=== PATIENT | female | born 1985 | race Caucasian/White ===

== ENCOUNTER 2016-12-27 11:44 | Emergency (ER) | payer SELFPAY ==
[2016-12-27 13:23] VITALS: BP 102/67
--- NOTE | 2016-12-27 13:59 | UC ---
Throat Pain/Nasal Jayden HPI - HPI Summary HPI Summary: ST with painful swelling starting about a week ago. Has had recurrent strep -- was frequent when her daughter was 5 and 6, but hasn't had in about a year. Denies cough or congestion. Also runs a daycare. As long as she was here, decided to mention tick bite to L outer leg about 3 weeks ago. Was pretty sure it was only on a matter of hours and was able to remove it easily by scratching it off. No redness, drainage, or swelling there. - History of Current Complaint Chief Complaint: UCRespiratory Stated Complaint: SORE THROAT AND TICK BITE Time Seen by Provider: 12/27/16 13:24 Hx Obtained From: Patient Hx Last Menstrual Period: 11/24/16 ?: No Onset/Duration: Gradual Onset, Lasting Days Severity: Moderate Cough: None Associated Signs & Symptoms: Negative: Sinus Discomfort, Nasal Discharge, Fever , Vomiting, Rash - Allergies/Home Medications Allergies/Adverse Reactions: Allergies Allergy/AdvReac Type Severity Reaction Status Date / Time Bee Venom Allergy Intermediate Hives, Verified 09/19/15 19:07 Swelling PMH/Surg Hx/FS Hx/Imm Hx Endocrine History Of: Denies: Diabetes, Thyroid Disease Cardiovascular History Of: Denies: Cardiac Disorders, Hypertension Respiratory History Of: Denies: COPD, Asthma GI/ History Of: Denies: Ulcer - Surgical History Surgical History: Yes Surgery Procedure, Year, and Place: L knee surgery at age 17-18 yrs - Family History Known Family History: Positive: Other - daughter gets freq strep Family History: NON CONTRIBUTORY - Social History Occupation: Employed Full-time Lives: With Family Alcohol Use: Occasionally Substance Use Type: None Smoking Status (MU): Never Smoked Tobacco Have You Smoked in the Last Year: No - Immunization History Most Recent Influenza Vaccination: Jul 2013 Review of Systems Constitutional: Negative Skin: Other - L leg tick bite Eyes: Negative ENT: Sore Throat Respiratory: Negative Cardiovascular: Negative Gastrointestinal: Negative Genitourinary: Negative Motor: Negative Neurovascular: Negative Musculoskeletal: Negative Neurological: Negative Psychological: Negative All Other Systems Reviewed And Are Negative: Yes Physical Exam Triage Information Reviewed: Yes Appearance: Well-Appearing, No Pain Distress, Well-Nourished Vital Signs: Initial Vital Signs Temp 98.7 F 12/27/16 13:18 Pulse 86 12/27/16 13:18 Resp 16 05/08/17 13:18 BP 102/67 12/27/16 13:18 Pulse Ox 99 12/27/16 13:18 Vital Signs Reviewed: Yes Eye Exam: Normal Eyes: Positive: Conjunctiva Clear ENT: Positive: Hearing grossly normal, Pharyngeal erythema, TMs normal, Tonsillar swelling. Negative: Tonsillar exudate Dental Exam: Normal Dental: Positive: Percussion Tenderness @, Gross Decay/Caries @, Dental Fracture @ Neck: Positive: Supple, Enlarged Nodes @ - ant cervial Respiratory Exam: Normal Respiratory: Positive: Chest non-tender, Lungs clear, Normal breath sounds, No respiratory distress, No accessory muscle use Cardiovascular Exam: Normal Cardiovascular: Positive: RRR, No Murmur Musculoskeletal Exam: Normal Neurological Exam: Normal Neurological: Positive: Alert Psychological Exam: Normal Skin Exam: Other - tick bite site benign, very faint 1cm round red area no erythema Throat Pain/Nasal Course/Dx - Differential Dx/Diagnosis Provider Diagnoses: strep pharyngitis. tick bite Discharge - Discharge Plan Condition: Stable Disposition: HOME Prescriptions: Cefdinir [Cefdinir 300 MG CAP] 300 mg PO BID #20 cap Patient Education Materials: Strep Throat (ED) Referrals: No Primary Care Phys,NOPCP [Primary Care Provider] - Additional Instructions: TICK BITE: You have been bitten by a tick. Once the tick is removed, these "bites" usually cause no problems. Tick fever, tick paralysis, [place] Spotted fever, and Lyme disease are uncommon -- but you should mention this tick bite to your doctor if you develop unusual symptoms in the next several weeks. If you develop any of the following, please see your physician promptly: (1) Fever, chills, or generalized malaise associated with a headache. (2) A red round area at the site of the bite (or elsewhere) (3) Joint pain, joint swelling or generalized weakness. (4) Redness, swelling, or drainage at the site of the bite. Check yourself, your children and your pets for ticks whenever you've been in an area where ticks live. To remove a tick, grasp it firmly with some tweezers or a string in a slipknot as close to its head as possible and pull it steadily. Ticks do not have a typical "head" attached to their body. There are mouth parts sticking out which they use to feed. If there are mouth parts left behind in the wound there is NO increased risk of Lyme infection; however, the chances of a bacterial skin infection (cellulitis) are higher. If mouth parts remain after tick removal, the best thing to do is apply warm soaks to the area 3-4 times per day to encourage the skin to expel the foreign material. WHEN A TICK IS NOT ENGORGED AND HAS BEEN ON LESS THAN 24 HOURS - THE RISK FOR LYME IS NEGLIGIBLE. YOU CAN REMOVE THE TICK AND OBSERVE THE AREA ON YOUR OWN.
== END 2016-12-27 13:57 | disposition home or self-care (01) ==
LOC: UCEAST 11:44
DX: J02.0 Streptococcal pharyngitis (principal); S80.862A Insect bite (nonvenomous), left lower leg, initial encounter; Z91.030 Bee allergy status; W57.XXXA Bitten or stung by nonvenomous insect and other nonvenomous arthropods, initial encounter
CPT/HCPCS: 87651; 99211; G0463

== ENCOUNTER 2017-01-03 12:43 | Emergency (ER) | payer SELFPAY ==
[2017-01-03 13:40] VITALS: BP 116/68
--- NOTE | 2017-01-03 13:53 | UC ---
Ear Complaint HPI - HPI Summary HPI Summary: For about a month has had dullness, crackles, and mild ache in L ear. Had recent strep infection that has resolved, but ear sx preceded it and have persisted without change. Denies trouble hearing or fever. Has noticed scant blood on swab when she cleans her ears in the morning, no active drainage. - History of Current Complaint Chief Complaint: UCEar Stated Complaint: EAR COMPLAINT Time Seen by Provider: 01/03/17 13:36 Hx Obtained From: Patient Hx Last Menstrual Period: 11/24/16 ?: No Onset/Duration: Gradual Onset, Lasting Weeks Severity Initially: Mild Severity Currently: Mild Aggravating Factors: Nothing Associated Signs/Symptoms: Positive: Discharge - scant blood, URI Symptoms. Negative: Hearing Loss - Allergies/Home Medications Allergies/Adverse Reactions: Allergies Allergy/AdvReac Type Severity Reaction Status Date / Time Bee Venom Allergy Intermediate Hives, Verified 09/19/15 19:07 Swelling PMH/Surg Hx/FS Hx/Imm Hx Endocrine History Of: Denies: Diabetes, Thyroid Disease Cardiovascular History Of: Denies: Cardiac Disorders, Hypertension Respiratory History Of: Denies: COPD, Asthma GI/ History Of: Denies: Ulcer - Surgical History Surgical History: Yes Surgery Procedure, Year, and Place: L knee surgery at age 17-18 yrs - Family History Known Family History: Positive: Other - daughter gets freq strep Family History: NON CONTRIBUTORY - Social History Lives: With Family Alcohol Use: Occasionally Substance Use Type: None Smoking Status (MU): Never Smoked Tobacco Have You Smoked in the Last Year: No - Immunization History Most Recent Influenza Vaccination: Jul 2013 Review of Systems Constitutional: Negative Skin: Negative Eyes: Negative ENT: Ear Ache Respiratory: Negative Cardiovascular: Negative Gastrointestinal: Negative Genitourinary: Negative Motor: Negative Neurovascular: Negative Musculoskeletal: Negative Neurological: Negative Psychological: Negative All Other Systems Reviewed And Are Negative: Yes Physical Exam Triage Information Reviewed: Yes Appearance: Well-Appearing, No Pain Distress, Well-Nourished Vital Signs: Initial Vital Signs Temp 98.1 F 01/03/17 13:37 Pulse 84 01/03/17 13:37 Resp 18 01/03/17 13:37 BP 116/68 01/03/17 13:37 Pulse Ox 100 01/03/17 13:37 Vital Signs Reviewed: Yes Eye Exam: Normal Eyes: Positive: Conjunctiva Clear ENT: Positive: Pharynx normal, TMs normal, Other: - visible air-fluid line behind L ear. Negative: Pharyngeal erythema, Tonsillar swelling Dental Exam: Normal Neck exam: Normal Neck: Positive: Supple, Nontender, No Lymphadenopathy Respiratory Exam: Normal Respiratory: Positive: Chest non-tender, Lungs clear, Normal breath sounds, No respiratory distress, No accessory muscle use Cardiovascular Exam: Normal Cardiovascular: Positive: RRR, No Murmur Musculoskeletal Exam: Normal Neurological Exam: Normal Neurological: Positive: Alert Psychological Exam: Normal Skin Exam: Normal Ear Complaint Course/Dx - Differential Dx/Diagnosis Provider Diagnoses: L ear eustachian tube dysfunction Discharge - Discharge Plan Condition: Stable Disposition: HOME Prescriptions: Mometasone NASAL (NF) [Nasonex (NF)] 2 spray BOTH NARES DAILY #1 nasal.spr Patient Education Materials: Serous Otitis Media (ED) Referrals: Rivas Lehman MD [Medical Doctor] - Additional Instructions: Please see your ENT office to follow-up about your persistent fluid in your ear. I see no signs of infection today. In the mean time, the nasal steroid spray might help your ear open up.
== END 2017-01-03 13:55 | disposition home or self-care (01) ==
LOC: UCEAST 12:43
DX: H69.92 Unspecified Eustachian tube disorder, left ear (principal); Z91.030 Bee allergy status
CPT/HCPCS: 99211; G0463

== ENCOUNTER 2017-03-23 17:53 | Emergency (ER) | payer MEDICAID ==
[2017-03-23 18:17] VITALS: BP 104/67
--- NOTE | 2017-03-23 18:21 | UC ---
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 - History of Current Complaint Chief Complaint: UCUpperExtremity Stated Complaint: RIGHT THUMB/HAND INJURY Time Seen by Provider: 03/23/17 18:19 Hx Last Menstrual Period: 02/26/17 - Allergies/Home Medications Allergies/Adverse Reactions: Allergies Allergy/AdvReac Type Severity Reaction Status Date / Time Bee Venom Allergy Intermediate Hives, Verified 03/23/17 18:17 Swelling PMH/Surg Hx/FS Hx/Imm Hx Previously Healthy: Yes - Surgical History Surgical History: Yes Surgery Procedure, Year, and Place: L knee surgery at age 17-18 yrs - Family History Known Family History: Positive: Other - daughter gets freq strep Family History: NON CONTRIBUTORY - Social History Alcohol Use: Occasionally Substance Use Type: None Smoking Status (MU): Never Smoked Tobacco Have You Smoked in the Last Year: No - Immunization History Most Recent Influenza Vaccination: Jul 2013 Review of Systems Constitutional: Negative Skin: Negative Eyes: Negative ENT: Negative Respiratory: Negative Cardiovascular: Negative Gastrointestinal: Negative Genitourinary: Negative Motor: Negative Neurovascular: Negative Musculoskeletal: Myalgia, Other: - RIGHT PROXIMAL THUMB PAIN Neurological: Negative Psychological: Negative All Other Systems Reviewed And Are Negative: Yes Physical Exam Triage Information Reviewed: Yes Vital Signs: Initial Vital Signs Temp 37.0 C 03/23/17 18:14 Pulse 83 03/23/17 18:14 Resp 16 03/23/17 18:14 BP 104/67 03/23/17 18:14 Pulse Ox 99 03/23/17 18:14 Eye Exam: Normal ENT Exam: Normal Dental Exam: Normal Neck exam: Normal Neck: Positive: 1 Respiratory Exam: Normal Cardiovascular Exam: Normal Abdominal Exam: Normal Musculoskeletal: Positive: Strength Limited @, ROM Limited @, Other: - RIGHT PROXIMAL THUMB PAIN Neurological Exam: Normal Psychological Exam: Normal Skin Exam: Normal Upper Extremity Course/Dx - Differential Dx/Diagnosis Provider Diagnoses: RIGHT THUMB PAIN Discharge - Discharge Plan Condition: Stable Disposition: HOME Prescriptions: Meloxicam [Mobic] 7.5 mg PO BID PC #30 tab Patient Education Materials: Hand Sprain (ED) Referrals: Morro Chan MD [Medical Doctor] - No Primary Care Phys,NOPCP [Primary Care Provider] -
--- NOTE | 2017-03-23 18:53 | RAD ---
INDICATION: Right hand injury 6 weeks ago COMPARISON: None TECHNIQUE: AP, lateral, and oblique views were obtained. FINDINGS: There is a mildly distracted intra-articular avulsion injury involving the base of the proximal phalanx of the thumb. There are no other fractures. The bony structures, joint spaces, and soft tissues otherwise normal. IMPRESSION: AVULSION FRACTURE BASE OF PROXIMAL PHALANX OF THE THUMB
== END 2017-03-23 19:39 | disposition home or self-care (01) ==
LOC: UCEAST 17:53
DX: M79.644 Pain in right finger(s) (principal); X50.0XXA Overexertion from strenuous movement or load, initial encounter; Y93.79 Activity, other specified sports and athletics; Y92.9 Unspecified place or not applicable; Y99.9 Unspecified external cause status
CPT/HCPCS: 99213; G0463

== ENCOUNTER 2017-04-29 09:05 | Emergency (ER) | payer OTHER ==
[2017-04-29 09:14] VITALS: BP 104/77
--- NOTE | 2017-04-29 09:50 | UC ---
Complaint Female HPI - HPI Summary HPI Summary: 1 WEEK OF URINARY FREQUENCY AND LOWER ABDOMINAL PAIN. NO FEVER, NASUEA OR BACK PAIN. STATES IT FEELS LIKE A UTI. - History Of Current Complaint Chief Complaint: UCGU Stated Complaint: URINARY ISSUE Time Seen by Provider: 04/29/17 09:46 Hx Obtained From: Patient Hx Last Menstrual Period: 04/05/17 Onset/Duration: Gradual Onset, Lasting Days, Still Present Severity Initially: Moderate Severity Currently: Moderate Pain Intensity: 4 Pain Scale Used: 0-10 Numeric Character: Burning Aggravating Factor(s): Urination Alleviating Factor(s): Nothing Associated Signs And Symptoms: Negative: Fever, Back Pain, Vaginal Bleeding/ Discharge, Vaginal Discharge, Nausea, Vomiting(# Of Episodes =), Genital Swelling, Genital Blisters - Allergies/Home Medications Allergies/Adverse Reactions: Allergies Allergy/AdvReac Type Severity Reaction Status Date / Time Bee Venom Allergy Intermediate Hives, Verified 04/29/17 09:09 Swelling Home Medications: Home Medications Ibuprofen TAB* [Advil TAB*] 800 mg PO PRN 04/29/17 [History] PMH/Surg Hx/FS Hx/Imm Hx Previously Healthy: Yes - Surgical History Surgical History: Yes Surgery Procedure, Year, and Place: L knee surgery at age 17-18 yrs - Family History Known Family History: Positive: Other - daughter gets freq strep Negative: Hypertension - Social History Alcohol Use: Occasionally Substance Use Type: None Smoking Status (MU): Never Smoked Tobacco Have You Smoked in the Last Year: No - Immunization History Most Recent Influenza Vaccination: Jul 2013 Review of Systems Constitutional: Negative Respiratory: Negative Cardiovascular: Palpitations Gastrointestinal: Abdominal Pain Genitourinary: Frequency, Urgency All Other Systems Reviewed And Are Negative: Yes Physical Exam Triage Information Reviewed: Yes Appearance: Well-Appearing, No Pain Distress, Well-Nourished Vital Signs: Initial Vital Signs Temp 97.0 F 04/29/17 09:10 Pulse 58 04/29/17 09:10 Resp 16 04/29/17 09:10 BP 104/77 04/29/17 09:10 Pulse Ox 95 04/29/17 09:10 Vital Signs Reviewed: Yes Eyes: Positive: Conjunctiva Clear ENT: Positive: Hearing grossly normal Neck: Positive: Supple Respiratory: Positive: No respiratory distress, No accessory muscle use Cardiovascular: Positive: Pulses Normal Abdomen Description: Positive: Nontender, Soft. Negative: CVA Tenderness (R), CVA Tenderness (L), Distended, Guarding Musculoskeletal: Positive: No Edema Neurological: Positive: Alert Psychological: Positive: Age Appropriate Behavior Skin: Negative: rashes Diagnostics - Laboratory Diagnostic Studies Completed/Ordered: URINE DIP SP. GR. 1.015, 2+ LEUKS, TRACE BLOOD Complaint Female Dx - Differential Dx/Diagnosis Provider Diagnoses: UTI Discharge - Discharge Plan Condition: Stable Disposition: HOME Prescriptions: Sulfamethox/Trimethoprim DS* [Bactrim DS 800/160 TAB*] 1 tab PO BID #10 tab Patient Education Materials: Urinary Tract Infection in Women (ED) Referrals: No Primary Care Phys,NOPCP [Primary Care Provider] - Additional Instructions: WE HAVE SENT YOUR URINE FOR CULTURE AND WILL CALL YOU IF YOUR MEDICATION NEEDS TO BE ALTERED. STAY HYDRATED. CALL THE NUMBER BELOW FOR ASSISTANCE IN ESTABLISHING WITH A PCP An additional resource available to assist in finding the appropriate physician for your health care needs is the [facility] ([facility]). You may contact them by calling [phone].
== END 2017-04-29 09:50 | disposition home or self-care (01) ==
LOC: UCEAST 09:05
DX: N39.0 Urinary tract infection, site not specified (principal); B96.20 Unspecified Escherichia coli [E. coli] as the cause of diseases classified elsewhere; Z91.030 Bee allergy status
CPT/HCPCS: 81003; 87077; 87086; 87186; 99212; G0463

== ENCOUNTER 2017-04-30 09:08 | Emergency (ER) | payer OTHER ==
[2017-04-30 09:19] VITALS: BP 102/71
--- NOTE | 2017-04-30 09:51 | UC ---
Throat Pain/Nasal Jayden HPI - HPI Summary HPI Summary: Patient complains of one day onset sore throat. She states she has a history of frequent strep throat and states feels like she has the same now. 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 She states she is able to eat, drink and swallow her own secretions, and denies any difficulty breathing. Denies fever, chills, chest pain, congestion, abdomianl pain, nausea, vomiting or diarrhea. - History of Current Complaint Chief Complaint: UCGeneralIllness Stated Complaint: SORE THROAT Time Seen by Provider: 04/30/17 09:26 Hx Obtained From: Patient Hx Last Menstrual Period: 04/05/17 ?: No Onset/Duration: Gradual Onset, Lasting Days Severity: Moderate Pain Intensity: 2 Pain Scale Used: 0-10 Numeric Cough: Nonproductive Associated Signs & Symptoms: Positive: Negative - Epiglottits Risk Factors Epiglottis Risk Factors: Negative - Allergies/Home Medications Allergies/Adverse Reactions: Allergies Allergy/AdvReac Type Severity Reaction Status Date / Time Bee Venom Allergy Intermediate Hives, Verified 04/30/17 09:16 Swelling PMH/Surg Hx/FS Hx/Imm Hx Previously Healthy: Yes - Surgical History Surgical History: Yes Surgery Procedure, Year, and Place: L knee surgery at age [age] yrs - Family History Known Family History: Positive: Other - daughter gets freq strep Negative: Hypertension Family History: NON CONTRIBUTORY - Social History Occupation: Employed Full-time Lives: Alone Alcohol Use: Occasionally Substance Use Type: None Smoking Status (MU): Never Smoked Tobacco Have You Smoked in the Last Year: No - Immunization History Most Recent Influenza Vaccination: Jul 2013 Review of Systems Constitutional: Fatigue Skin: Negative Eyes: Negative ENT: Sore Throat, Ear Ache Respiratory: Negative Gastrointestinal: Negative Genitourinary: Negative Musculoskeletal: Negative All Other Systems Reviewed And Are Negative: Yes Physical Exam Triage Information Reviewed: Yes Appearance: Ill-Appearing Vital Signs: Initial Vital Signs Temp 98.4 F 04/30/17 09:16 Pulse 75 04/30/17 09:16 Resp 16 04/30/17 09:16 BP 102/71 04/30/17 09:16 Pulse Ox 100 04/30/17 09:16 Vital Signs Reviewed: Yes Eye Exam: Normal ENT: Positive: Pharyngeal erythema, TM dull Neck exam: Normal Respiratory Exam: Normal Abdominal Exam: Normal Skin Exam: Normal Throat Pain/Nasal Course/Dx - Course Course Of Treatment: Patient states she is currently on Bactrim for UTI she has taken one dose. She states she has since developed a sore throat and her symtpoms are consistent with prevous strep throat. 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 I do not feel any other ABX are indicated and I gave her a work not that take her out for today. If her symtpoms worsen, persist or other concerns develop she was instructed to follow up with her PCP. At the time of discharge the patient had normal VS, and was hemodynamically, with patent airway, and stable. - Differential Dx/Diagnosis Differential Diagnosis/HQI/PQRI: Pharyngitis, Other Provider Diagnoses: strep throat Discharge - Discharge Plan Condition: Stable Disposition: HOME Patient Education Materials: Strep Throat (ED) Forms: *Work Release Referrals: No Primary Care Phys,NOPCP [Primary Care Provider] -
== END 2017-04-30 09:40 | disposition home or self-care (01) ==
LOC: UCEAST 09:08
DX: J02.0 Streptococcal pharyngitis (principal)
CPT/HCPCS: 99211; G0463

== ENCOUNTER 2017-06-09 09:09 | Day surgery (SDC) | payer OTHER ==
[~2017-06-09 09:09] MED LIST: Buffered Lidocaine 0.9% SYRIN* 5 ML/SYR SYRINGE INTRADERM ONE; Dexamethasone IV* 4 MG/ML 1 ML (4 MG) IV SLOW PU ONE; Dexamethasone IV* 4 MG/ML 1 ML (4 MG) ONE; Famotidine IV* 10 MG/ML 2 ML (20 mg) IV ONE; Famotidine IV* 10 MG/ML 2 ML (20 mg) ONE
[2017-06-09] MEDS ORDERED: ceFAZolin 2 GM PREMIX (*) 2 GM/50 ML BAG IVPB ONE (09:51)
[2017-06-09] MEDS ORDERED: Bupivacaine 0.25% SDV* 30 ML ONE (10:44)
[2017-06-09] MEDS ORDERED: fentaNYL* 50 MCG/ML 2 ML VIAL (100 MCG VIAL) ONE ×2 (10:47→12:27)
[2017-06-09] MEDS ORDERED: Midazolam* 1 MG/ML 2 ML VIAL (2 MG) ONE (10:47)
[2017-06-09] MEDS ORDERED: Propofol* 10 MG/ML 20 ML BTL IV PUSH ONE (10:47)
[2017-06-09] MEDS ORDERED: Lidocaine 2% PF * 5 ML VIAL ONE (10:47)
[2017-06-09] MEDS ORDERED: ROPIVACAINE 5 MG/ML 30 ML BTL (0.5%) ONE (11:03)
[2017-06-09] MEDS ORDERED: Ketorolac INJ* 30 MG/ML 1 ML VIAL ONE (11:34)
[2017-06-09] MEDS ORDERED: oxyCODONE/Acetamin 5/325 MG* TAB PO PRN (11:46)
[2017-06-09] MEDS ORDERED: HYDROcodone/ACETAMIN 5-325 MG* 1 TAB PO PRN (11:46)
[2017-06-09] MEDS ORDERED: PROCHLORPERAZINE INJ 5 MG/ML 2 ML VIAL IV PRN (11:46)
[2017-06-09] MEDS ORDERED: fentaNYL* 50 MCG/ML 2 ML VIAL (100 MCG VIAL) IV PRN (11:46)
[2017-06-09] MEDS ORDERED: Ondansetron INJ* 2 MG/ML VIAL ONE (12:42)
[2017-06-09] MEDS ORDERED: PROCHLORPERAZINE INJ 5 MG/ML 2 ML VIAL ONE (13:23)
[2017-06-09 14:54] VITALS: BP 104/64
--- NOTE | 2017-06-10 10:31 | OP ---
OPERATIVE REPORT: DATE OF OPERATION: 06/09/17 - VAMSHI DATE OF : 85 SURGEON: Morro Chan MD IT SERVICE CONTINUITY SUPERVISOR: LUL Boo. An sound assistant was needed for the entirety of the procedure to aid in positioning of the arm and retraction. ANESTHESIOLOGIST: Dr. Willis. ANESTHESIA: General with intercostal block. 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 OPERATIVE PROCEDURE: Excision of right thumb metatarsophalangeal joint ulnar collateral ligament avulsion fracture fragment and advancement of the ulnar collateral ligament into the fracture bed for repair of the ligament. INDICATIONS: Guillermina had the fracture back in early summer. It has gone on to be a symptomatic nonunion. It is very painful when she uses the thumb. We talked about risks and benefits. I told her that I would try to fix the fragment, but if not I would repair tissue with suture. She understands this. She understands the chance of a failure of the surgery necessitating further surgery including an ulnar collateral ligament reconstruction. She wanted to proceed. ESTIMATED BLOOD LOSS: 2 mL. COMPLICATIONS: None. FINDINGS: The fragment was too small to take a screw and so we had to repair with sutures. DESCRIPTION OF PROCEDURE: Guillermina was seen in the preoperative holding area. The correct side, site, and procedure were identified. We came back to the operating room. The arm was prepped and draped in the usual fashion. Formal time-out was performed. I began by exsanguinating the arm with the Esmarch and the tourniquet was inflated to 250 mmHg. I made a lazy S incision over the ulnar aspect of the thumb metatarsophalangeal joint. Dissection was carried down. The traversing dorsal sensory nerves were retracted and protected. The adductor aponeurosis was incised longitudinally and retracted dorsally and volarly. This exposed the ligament. There was quite a bit of scar tissue that developed adhesions between the aponeurosis and the ligament. These were freed up with the [place] blade. The fracture nonunion was identified. It was debrided free of all of the soft tissue with the [place] blade and the rongeur. It was a very small fragment. I did reduce the fragment with the point of reduction clamp and checked the alignment on fluoroscopy. Everything looked very nice. I then placed one 0.6 mm K-wire out of the place and my plan to pin the fixation, I removed the clamp and then drilled with a 1.3 mm drill bit in anticipation of 1.3 mm lag screw. Unfortunately, the fragment was too small and it cracked when I drilled with a 1.3 drill. I; therefore; made the decision to excise the remainder of the fragment and to advance the ligament into the fracture bed to repair for a ulnar collateral ligament repair. I placed 2 micro Mitek suture anchors in the fracture bed. It was tight, but I was able to get them both in. I then took the 4-0 Ethibond suture off these and placed a whipstitch up into the ligament with one tail of the suture and then pulled the traction on the suture to bring the tissue and bone into apposition. I then tied both of these off. This provided excellent apposition between the distal aspect of the ulnar collateral ligament and the bone. I then took 4-0 Ethibond suture on the taper needle and placed multiple [id number] sutures to augment the repair. Once I had completed the repair, it was absolutely stable. I went ahead and irrigated out the wound. The adductor aponeurosis was repaired with 4-0 Ethibond suture. Skin was closed with 4-0 nylon suture. The area was infiltrated with 0.25% plain Marcaine. The wound was dressed with Xeroform, 4x4 's, sterile Webril, and a thumb spica splint was placed holding the thumb in the adducted position. Tourniquet was deflated and the hand pinked up immediately. She was then awoken up and taken to recovery room in stable condition. [id number]/[facility] #: [id number] CAROL
--- NOTE | 2017-06-10 19:10 | RAD ---
CPT II Codes: 6045F INDICATION: Thumb injury and pain. Fluoroscopic services provided for referring physician. 25 seconds of fluoroscopy time was used. 3 spot images demonstrates repair and hardware at the proximal ulnar aspect of the proximal phalanx of the thumb. IMPRESSION: Fluoroscopic services provided for referring physician for ligament repair.
== END 2017-06-09 14:48 | disposition home or self-care (01) ==
LOC: OREAST 09:09
PROVIDERS: ATTEND Orthopaedic Surgery Hand Surgery
DX: S62.511 Displaced fracture of proximal phalanx of right thumb (principal); X58.XXXD Exposure to other specified factors, subsequent encounter; Y92.9 Unspecified place or not applicable
CPT/HCPCS: 76000; 81025; C1776; J0690; J0780; J1100; J1885; J2250; J2405; J2704; J2795; J3010

== ENCOUNTER 2017-07-16 09:19 | Emergency (ER) | payer MEDICAID ==
[2017-07-16 09:34] VITALS: BP 93/60
--- NOTE | 2017-07-16 10:33 | UC ---
Throat Pain/Nasal Jayden HPI - HPI Summary HPI Summary: sore throat upset stomach for 2 days feels like past episodes of strep throat - History of Current Complaint Chief Complaint: UCGeneralIllness Stated Complaint: STREP THROAT Time Seen by Provider: 07/16/17 09:54 Hx Obtained From: Patient Hx Last Menstrual Period: 07/15/17 ?: No Onset/Duration: Sudden Onset, Lasting Days - 2, Still Present Severity: Moderate Cough: None - Allergies/Home Medications Allergies/Adverse Reactions: Allergies Allergy/AdvReac Type Severity Reaction Status Date / Time Bee Venom Allergy Intermediate Hives, Verified 07/16/17 09:23 Swelling PMH/Surg Hx/FS Hx/Imm Hx Previously Healthy: Yes - Surgical History Surgical History: Yes Surgery Procedure, Year, and Place: 2000 L knee surgery [place] thumb surgery - Family History Known Family History: Positive: Other - daughter gets freq strep Negative: Hypertension Family History: NON CONTRIBUTORY - Social History Occupation: Employed Full-time Lives: With Family Alcohol Use: Occasionally Alcohol Amount: 1-2 DRINKS/WEEK Substance Use Type: None Smoking Status (MU): Never Smoked Tobacco Have You Smoked in the Last Year: No - Immunization History Most Recent Influenza Vaccination: Jul 2013 Review of Systems Constitutional: Negative Skin: Negative Eyes: Negative ENT: Sore Throat Respiratory: Negative Cardiovascular: Negative Gastrointestinal: Abdominal Pain Genitourinary: Negative Motor: Negative Neurovascular: Negative Musculoskeletal: Negative Neurological: Negative Psychological: Negative Is Patient Immunocompromised?: No All Other Systems Reviewed And Are Negative: Yes Physical Exam Triage Information Reviewed: Yes Appearance: Well-Appearing, No Pain Distress, Well-Nourished Vital Signs: Initial Vital Signs Temp 98 F 07/16/17 09:30 Pulse 82 07/16/17 09:30 Resp 20 07/16/17 09:30 BP 93/60 07/16/17 09:30 Pulse Ox 100 07/16/17 09:30 Vital Signs Reviewed: Yes Eye Exam: Normal Eyes: Positive: Conjunctiva Clear ENT Exam: Normal ENT: Positive: Normal ENT inspection, Hearing grossly normal, Pharyngeal erythema, TMs normal, Uvula midline. Negative: Nasal congestion, Trismus, Muffled voice, Hoarse voice, Dental tenderness, Sinus tenderness Dental Exam: Normal Neck exam: Normal Neck: Positive: Supple, Nontender, No Lymphadenopathy Respiratory Exam: Normal Respiratory: Positive: Chest non-tender, Lungs clear, Normal breath sounds, No respiratory distress, No accessory muscle use Cardiovascular Exam: Normal Cardiovascular: Positive: RRR, No Murmur, Pulses Normal, Brisk Capillary Refill Abdominal Exam: Normal Musculoskeletal Exam: Normal Neurological Exam: Normal Neurological: Positive: Alert, Muscle Tone Normal Psychological Exam: Normal Skin Exam: Normal Diagnostics - Laboratory Diagnostic Studies Completed/Ordered: RST (-),, son is RST (+) Throat Pain/Nasal Course/Dx - Course Assessment/Plan: Amoxicillin increase fluids, tylenol, ibuprofen for pain follow with pcp prn - Differential Dx/Diagnosis Provider Diagnoses: Pharyngitis Discharge - Discharge Plan Condition: Stable Disposition: HOME Prescriptions: Amoxicillin PO (*) [Amoxicillin 500 MG CAP*] 500 mg PO Q12H #20 cap Patient Education Materials: Amoxicillin (By mouth), Pharyngitis (ED) Referrals: [facility] [place] [facility]IAN REFERRAL [Outside] - If Needed
== END 2017-07-16 10:48 | disposition home or self-care (01) ==
LOC: UCEAST 09:19
DX: J02.9 Acute pharyngitis, unspecified (principal); Z72.89 Other problems related to lifestyle
CPT/HCPCS: 87651; 99212; G0463

== ENCOUNTER 2017-10-17 17:11 | Emergency (ER) | payer OTHER | END 2017-10-17 18:09 | disposition left against medical advice (07) | LOC: UCCORT 17:11 | DX: R23.9 Unspecified skin changes (principal); Z53.21 Procedure and treatment not carried out due to patient leaving prior to being seen by health care provider ==

== ENCOUNTER 2017-10-17 19:17 | Emergency (ER) | payer OTHER ==
[2017-10-17 19:30] VITALS: BP 115/71
[2017-10-17] MEDS ORDERED: Tetan/Diph/Pertus SYR(Tdap)* 0.5 ML SYR(BOOSTRIX) use SYR IM ONE (19:35)
--- NOTE | 2017-10-17 19:58 | UC ---
Hand/Wrist HPI - HPI Summary HPI Summary: Staple from old carpet punctured into R 3rd finger volar aspect yesterday. Not UTD on tetanus, now finger is swollen and tender. Unable to fully extend. - History Of Current Complaint Hx Obtained From: Patient Hx Last Menstrual Period: 09/23/17 ?: No Onset/Duration: Sudden Onset Severity Initially: Mild Severity Currently: Moderate Pain Intensity: 10 Aggravating Factor(s): Movement, Flexion, Extension Associated Signs And Symptoms: Positive: Swelling Related History: Dominant Hand Right <Sophia Resendez - Last Filed: 10/17/17 19:51> <Daphne Sanchez - Last Filed: 10/17/17 20:16> - History Of Current Complaint Chief Complaint: UCUpperExtremity Stated Complaint: FINGER INJURY Time Seen by Provider: 10/17/17 19:32 - Allergies/Home Medications Allergies/Adverse Reactions: Allergies Allergy/AdvReac Type Severity Reaction Status Date / Time bee venom protein (honey bee) Allergy Hives Verified 10/17/17 19:21 Home Medications: Home Medications Ibuprofen PRN 10/17/17 [History] PMH/Surg Hx/FS Hx/Imm Hx Previously Healthy: Yes - Surgical History Surgical History: Yes Surgery Procedure, Year, and Place: 2000 L knee surgery [place] thumb surgery - Family History Known Family History: Positive: Other - daughter gets freq strep Negative: Hypertension Family History: NON CONTRIBUTORY - Social History Alcohol Use: Occasionally Alcohol Amount: 1-2 DRINKS/WEEK Substance Use Type: None Smoking Status (MU): Never Smoked Tobacco Have You Smoked in the Last Year: No - Immunization History Most Recent Influenza Vaccination: Jul 2013 <Sophia Resendez - Last Filed: 10/17/17 19:51> Review of Systems Constitutional: Negative Skin: Other - PW Eyes: Negative ENT: Negative Respiratory: Negative Cardiovascular: Negative Gastrointestinal: Negative Genitourinary: Negative Motor: Negative Neurovascular: Negative Musculoskeletal: Decreased ROM Neurological: Negative Psychological: Negative Is Patient Immunocompromised?: No All Other Systems Reviewed And Are Negative: Yes <Sophia Resendez - Last Filed: 10/17/17 19:51> Physical Exam Triage Information Reviewed: Yes Appearance: Well-Appearing, Well-Nourished Vital Signs: Initial Vital Signs Temp 98.6 F 10/17/17 19:25 Pulse 88 10/17/17 19:25 Resp 16 02/26/18 19:25 BP 115/71 10/17/17 19:25 Pulse Ox 100 10/17/17 19:25 Vital Signs Reviewed: Yes Eye Exam: Normal Eyes: Positive: Conjunctiva Clear ENT Exam: Normal ENT: Positive: Normal ENT inspection, Hearing grossly normal, Pharynx normal, TMs normal Dental Exam: Normal Neck exam: Normal Neck: Positive: Supple, Nontender, No Lymphadenopathy Respiratory Exam: Normal Respiratory: Positive: Chest non-tender, Lungs clear, Normal breath sounds, No respiratory distress, No accessory muscle use Cardiovascular Exam: Normal Cardiovascular: Positive: RRR, No Murmur Musculoskeletal Exam: Other - pw to volar aspect of R 3rd proximal phalanx of hand, no surrounding erythema or streaking. Mild pain into palm along flexor tendon sheath. Musculoskeletal: Positive: ROM Limited @ - R 3rd finger unable to fully extend or bend at PIP joint Neurological Exam: Normal Psychological Exam: Normal Skin Exam: Other - Point PW R 3rd finger <Sophia Resendez - Last Filed: 10/17/17 19:51> Vital Signs: Initial Vital Signs Temp 98.6 F 10/17/17 19:25 Pulse 88 10/17/17 19:25 Resp 16 10/17/17 19:25 BP 115/71 10/17/17 19:25 Pulse Ox 100 10/17/17 19:25 <Daphne Sanchez - Last Filed: 10/17/17 20:16> Hand/Wrist Course/Dx - Differential Dx/Diagnosis Provider Diagnoses: PW to R hand <Sophia Resendez - Last Filed: 10/17/17 19:51> Discharge <Sophia Resendez - Last Filed: 10/17/17 19:51> <Daphne Sanchez - Last Filed: 10/17/17 20:16> - Discharge Plan Condition: Stable Disposition: HOME Prescriptions: Cephalexin CAP* [Keflex 500 CAP*] 500 mg PO QID #20 cap Patient Education Materials: Puncture Wound (ED) Referrals: Morro Chan MD [Medical Doctor] - 2 Days Additional Instructions: As we discussed, the placement of your puncture wound is of particular concern because of the tendon and tendon sheath that can get infected. While you do not have redness, your swelling and stiffness should be rechecked later this week by your hand surgeon. Attestation Statement User Type: Provider - I was available for consult. This patient was seen by the advanced practice provider. The patient was not presented to, seen by, or examined by me.-Americo <Daphne Sanchez - Last Filed: 10/17/17 20:16>
== END 2017-10-17 20:00 | disposition home or self-care (01) ==
LOC: UCEAST 19:17
DX: S61.232A Puncture wound without foreign body of right middle finger without damage to nail, initial encounter (principal); Z91.030 Bee allergy status; I10 Essential (primary) hypertension; W26.8XXA Contact with other sharp object(s), not elsewhere classified, initial encounter; Y93.9 Activity, unspecified; Y92.9 Unspecified place or not applicable
CPT/HCPCS: 90471; 90715; 99211; G0463

== ENCOUNTER 2018-02-18 07:21 | Emergency (ER) | payer MEDICAID, OTHER ==
[2018-02-18 07:30] VITALS: BP 97/62
--- NOTE | 2018-02-18 09:57 | UC ---
Alex Valenzuela Rebecca, scribed for Sabi Pedraza DO on 02/18/18 at 0807 . Complaint Female HPI - HPI Summary HPI Summary: Pt is a 32 y/o F who presents to [facility] c/o abdominal cramping, urinary frequency and dysuria for 1-2 weeks, worse this morning. On triage, pain is moderate ranked 6/10. Additionally c/o nausea and dizziness secondary to . Denies vaginal bleeding, vision changes, fever, chills, back pain, vomiting, CP, SOB, cough, FRAIRE. Pt reports she has had prior similar episodes which sometimes resolve with increased water intake. She is about 7 weeks and has an appointment with [place] [facility] at the end of February with no problems with her current , besides nausea and dizziness. After her first , she would get UTIs at least 3-4 times a year for multiple years. After her second , she experiences them less frequently, with this being her first one in years. - History Of Current Complaint Chief Complaint: [facility] Stated Complaint: UTI Time Seen by Provider: 02/18/18 07:42 Hx Obtained From: Patient Hx Last Menstrual Period: 09/23/17 Onset/Duration: Lasting Weeks - 1-2 weeks, Still Present, Worse Since - This morning Severity Currently: Moderate Pain Intensity: 6 Pain Scale Used: 0-10 Numeric Character: Burning - With urination, Cramping Aggravating Factor(s): Nothing Alleviating Factor(s): Nothing Associated Signs And Symptoms: Positive: Nausea. Negative: Fever, Back Pain - Allergies/Home Medications Allergies/Adverse Reactions: Allergies Allergy/AdvReac Type Severity Reaction Status Date / Time bee venom protein (honey bee) Allergy Hives Verified 02/18/18 07:31 PMH/Surg Hx/FS Hx/Imm Hx - Additional Past Medical History Additional PMH: NEGATIVE PMHx: Asthma, COPD GI/ History: Other Other GI/ History: Frequent UTIs - Surgical History Surgical History: Yes Surgery Procedure, Year, and Place: 2000 L knee surgery [place] thumb surgery - Family History Known Family History: Positive: Other - daughter gets freq strep Negative: Hypertension - Social History Alcohol Use: None Alcohol Amount: 1-2 DRINKS/WEEK Substance Use Type: None Smoking Status (MU): Never Smoked Tobacco Have You Smoked in the Last Year: No - Immunization History Most Recent Influenza Vaccination: Jul 2013 Review of Systems Constitutional: Negative Skin: Negative Eyes: Negative ENT: Negative Respiratory: Negative Cardiovascular: Negative Gastrointestinal: Nausea, Other - Abdominal cramping Genitourinary: Dysuria, Frequency Motor: Negative Neurovascular: Negative Musculoskeletal: Negative Neurological: Other - Dizziness Psychological: Negative All Other Systems Reviewed And Are Negative: Yes - Comments Additional Review of Systems Comments: NEGATIVE: Fever, chills, back pain, vomiting, CP, SOB, cough, FRAIRE, vaginal bleeding Physical Exam - Summary Physical Exam Summary: Appearance: Well-Appearing, No Pain Distress, Well-Nourished Eyes: conjunctiva clear, no discharge ENT: Hearing grossly normal, no muffled/hoarse voice. Neck: Normal, Supple Respiratory/Lung Sounds: Lungs clear, Normal breath sounds, No respiratory distress, No accessory muscle use Cardiovascular: RRR, No murmur Abdomen: Nontender, Soft, no guarding, not distended Bowel Sounds: Present Musculoskeletal: Normal Neurological: Alert, muscle tone normal Psychiatric:Normal, age appropriate behavior Skin: Normal, Warm, Dry, Normal color Triage Information Reviewed: Yes Vital Signs: Initial Vital Signs Temp 98.2 F 02/18/18 07:28 Pulse 73 02/18/18 07:28 Resp 18 02/18/18 07:28 BP 97/62 02/18/18 07:28 Pulse Ox 100 02/18/18 07:28 Vital Signs Reviewed: Yes Complaint Female Dx - Course Course Of Treatment: Pt is a 32 y/o F who presents to [facility] c/o abdominal cramping, urinary frequency and dysuria for 1-2 weeks, worse this morning with pain ranked 6/10. Additionally c/o nausea and dizziness secondary to . Denies fever, chills, back pain, vomiting, CP, SOB, cough, FRAIRE. Pt reports she has had prior similar episodes which sometimes resolve with increased water intake. No problems with her current , besides nausea and dizziness. PMHx frequent UTIs - this is her first one in years. In the [facility] course, pt had a UA done with results including 2+ protein, 3+ blood, and 3+ leukocyte esterase. Pt will be D/C to home with Dx of UTI with Rx for Macrobid. Medications reviewed. Allergies reviewed. - Differential Dx/Diagnosis Provider Diagnoses: UTI - Physician Notifications Discussed Patient Care With: David Hernandez Time Discussed With Above Provider: 08:56 Instructed by Provider To: Other - Discussed protein in urine which is not presently of concern. Recommended following up with already scheduled appointment. Discharge - Sign-Out/Discharge Documenting (check all that apply): Discharge/Admit/Transfer - Discharge - Discharge Plan Condition: Stable Disposition: HOME Prescriptions: Nitrofurantoin Monohyd/M-Cryst [Macrobid 100 mg Capsule] 100 mg PO BID #10 cap Referrals: No Primary Care Phys,NOPCP [Primary Care Provider] - Additional Instructions: - Replace beneficial bacteria by taking probiotics and look into cycling probiotics or finding one for women with frequent UTIs The documentation as recorded by the Alex valdovinos Rebecca accurately reflects the service I personally performed and the decisions made by , Sabi Pedraza DO.
== END 2018-02-18 09:08 | disposition home or self-care (01) ==
LOC: UCEAST 07:21
DX: O23.41 Unspecified infection of urinary tract in pregnancy, first trimester (principal); Z3A.01 Less than 8 weeks gestation of pregnancy; Z91.030 Bee allergy status
CPT/HCPCS: 81003; 87086; 99212; G0463

== ENCOUNTER 2018-10-06 07:55 | Inpatient (IN) | payer OTHER ==
[2018-10-06] MEDS ORDERED: Buffered Lidocaine 1% SYRIN* 1 ML/SYRINGE INTRADERM ONE (08:56)
[2018-10-06] MEDS ORDERED: Lactated Ringers 1000 ML Bag* 1,000 ML IV ONE (08:56)
[2018-10-06] MEDS ORDERED: Lactated Ringers 1000 ML Bag* 1,000 ML IV SCH ×2 (09:00→15:00)
[2018-10-06 10:03] LABS: ABS Basophils 0.1 10^3/ul (0-0.2); ABS Eosinophils 0.1 10^3/ul (0-0.6); ABS Monocytes 1.2 10^3/ul (0-0.8); ABS Neutrophils 12.7 10^3/ul (1.5-7.7); ABS Nucleated RBC 0 10^3/ul; Eosinophil % 0.5 %; Hematocrit 36 % (35-47); Hemoglobin 12.1 g/dl (12.0-16.0); Lymphocyte % 17.3 %; Mean Corpuscular HGB Conc 34 g/dl (31-36); Mean Corpuscular Hemoglobin 29 pg (27-31); Mean Corpuscular Volume 87 fL (80-97); Mean Platelet Volume 8.8 fL (7.4-10.4); Nucleated Red Blood Cells % 0; Platelet Count 235 10^3/ul (150-450); Red Blood Count 4.14 10^6/ul (4.00-5.40); Red Cell Distribution Width 14 % (10.5-15); White Blood Count 17.1 10^3/ul (3.5-10.8)
--- NOTE | 2018-10-06 13:00 | PN ---
Progress Note - Progress Note Date of Service: 10/06/18 SOAP: Subjective: [Pt reports ctx are more intense, and reports + bloody show. ] Objective: cervix: 4-5/80/-1, AROM: clear, scant. + bloody show] FHT: 145bpm Assessment: [33 y.o. , 39w, active labor, GBS negative, hx of PPH.] Plan: [1) AROM 2) Expectant mgmt 3) Anticipate vaginal delivery]
[2018-10-06] MEDS ORDERED: Oxytocin in LR* 40 UNITS/2,000 ML BAG IVPB ONE (14:10)
--- NOTE | 2018-10-06 14:27 | HP ---
General Information - Reason for Visit early labor - General Information Maternal Age: 33 Grav: 2 Para: 2 SAB: 0 IEA: 0 Estimated Due Date: 10/12/18 Determined By: Early Ultrasound Maternal Blood Type and Rh: A Negative - Results this Serology/RPR Result: Non-Reactive Rubella Result: Non-Immune HBsAg Result: Negative HIV Result: Negative GBS Culture Result: Negative Past Medical History Delivery History: Hx Complicated Vaginal Delivery - PPH Pertinent Past Medical History: See Records - anxiety Pertinent Past Surgical History: See Records - 2002 knee, 2017 thumb Pertinent Family History: Non-Contributory - Antepartal Records Antepartal Records: Reviewed, Complicated by: - hx PPH, marginal previa (resolved) Review of Systems Constitutional: Comfortable CV Complaint: No Respiratory: Shortness of Breath: No Gastrointestinal: No Nausea/Vomiting, Normal Bowel Movement Genitourinary: No Dysuria, No Bleeding, No Leaking Fluid, Spotting Musculoskeletal: No Epigastric Pain, Contractions Neurological: No Headache, No Visual Changes Movement: Normal Exam Allergies/Adverse Reactions: Allergies bee venom protein (honey bee) Allergy (Verified 02/18/18 07:31) Hives 3-4/80/-1 Lab Values - Entire Visit: Laboratory Tests 10/06/18 10/06/18 09:45 09:45 WBC 17.1 H RBC 4.14 Hgb 12.1 Hct 36 MCV 87 MCH 29 MCHC 34 RDW 14 Plt Count 235 MPV 8.8 Neut % (Auto) 74.7 Lymph % (Auto) 17.3 [place] % (Auto) 7.1 Eos % (Auto) 0.5 Baso % (Auto) 0.4 Absolute Neuts (auto) 12.7 H Absolute Lymphs (auto) 3.0 Absolute Monos (auto) 1.2 H Absolute Eos (auto) 0.1 Absolute Basos (auto) 0.1 Absolute Nucleated RBC 0 Nucleated RBC % 0 Blood Type A Negative Antibody Screen Negative Crossmatch See Detail - Measurements Height: 5 ft Weight: 158 lb Weight in lbs: [phone] Body Mass Index (BMI): 30.8 Pre- Weight: 119 lb Weight Gained This : 39 lbs and 0 ozs - Exam Breast: Breast Exam Deferred CVA: No CVA Tenderness Extremities: No Edema Heart: Normal Rhythm/Heart Sounds HEENT: No Significant Findings Lungs: Clear Bilaterally Rectal: Rectal Exam Deferred Thyroid: No Thyromegaly - Abdominal Exam Abdomen Exam: Fundal Height Consistent with Dates
[2018-10-06] MEDS ORDERED: Measles, Mumps,Rubella VACC* 0.5 ML/VIAL SUBCUT ONE (14:52)
[2018-10-06] MEDS ORDERED: Dibucaine 1% 28.35 GM TUBE PR PRN (14:52)
[2018-10-06] MEDS ORDERED: Glycerin ADULT SUPP PR PRN (14:52)
[2018-10-06] MEDS ORDERED: Varicella Virus Vaccine Live* 0.5 ML VIAL SUBCUT ONE (14:52)
[2018-10-06] MEDS ORDERED: Ibuprofen TAB* 600 MG PO PRN (14:52)
[2018-10-06] MEDS ORDERED: Witch Hazel PAD* JAR TOPICAL PRN (14:52)
[2018-10-06] MEDS ORDERED: Misoprostol TAB* 200 MCG PR ONE (14:52)
--- NOTE | 2018-10-06 14:56 | PROCNOTE ---
[facility] OB: Delivery Note - Delivery A Date of : 10/06/18 Time of : 14:37 Sex: Female Score 1 Minute: 9 Score 5 Minutes: 9 Gestational Age in Weeks and Days at Delivery: 39 Weeks and 1 Days Delivery Method: Spontaneous Vaginal Labor: Spontaneous Amniotic Fluid: Clear Estimated Blood Loss: 250 Anesthesia/Analgesia: None Delivered By: Gabby Romo - Nursery Level of Nursery: Regular/Bedside - Perineum Perineal Injury: None/Intact Perineal Repair: None - Events Delivery Events of Note: Pitocin Only After Delivery - Risk for Falls Other Risk for Falls: hx of hemorrhage
[2018-10-06] MEDS ORDERED: Misoprostol TAB* 200 MCG ONE (14:57)
[2018-10-06] MEDS ORDERED: Oxytocin in LR* 20 UNITS/1,000 ML BAG IVPB SCH ×2 (15:00→18:00)
[2018-10-06] MEDS: Acetaminophen TAB* 325 MG PO PRN ×2 (17:28→21:30)
[2018-10-06] MEDS: Docusate CAP* 100 MG PO SCH (21:30)
[2018-10-07 03:55] VITALS: BP 109/71
[2018-10-07] MEDS: Acetaminophen TAB* 325 MG PO PRN (04:05)
[2018-10-07] MEDS: Simethicone TAB* 80 MG TAB.CHEW PO SCH ×2 (07:23→08:38)
[2018-10-07 07:41] LABS: ABS Basophils 0.2 10^3/ul (0-0.2); ABS Eosinophils 0.1 10^3/ul (0-0.6); ABS Lymphocytes 2.8 10^3/ul (1.0-4.8); ABS Monocytes 1.3 10^3/ul (0-0.8); ABS Neutrophils 14.2 10^3/ul (1.5-7.7); ABS Nucleated RBC 0 10^3/ul; Eosinophil % 0.3 %; Hematocrit 33 % (35-47); Hemoglobin 10.9 g/dl (12.0-16.0); Lymphocyte % 15.1 %; Mean Corpuscular HGB Conc 33 g/dl (31-36); Mean Corpuscular Hemoglobin 29 pg (27-31); Mean Corpuscular Volume 86 fL (80-97); Mean Platelet Volume 8.8 fL (7.4-10.4); Nucleated Red Blood Cells % 0; Platelet Count 186 10^3/ul (150-450); Red Blood Count 3.81 10^6/ul (4.00-5.40); Red Cell Distribution Width 14 % (10.5-15); White Blood Count 18.5 10^3/ul (3.5-10.8)
[2018-10-07] MEDS ORDERED: Ferrous Gluconate TAB* 324 MG TAB PO SCH (09:00)
[2018-10-07] MEDS: Docusate CAP* 100 MG PO SCH ×2 (09:27→13:57)
[2018-10-07] MEDS ORDERED: Tetan/Diph/Pertus SYR(Tdap)* 0.5 ML SYR(BOOSTRIX) use SYR IM ONE (12:15)
== END 2018-10-07 14:59 | disposition home or self-care (01) | DRG 560 ==
LOC: MCHOBOUT 07:55 → MCHOB 08:43
PROVIDERS: ADMIT Midwife; ATTEND Midwife
PROC: 3E0P7VZ Introduction of Hormone into Female Reproductive, Via Natural or Artificial Opening (ICD-10-PCS; principal; 2018-10-06)
PROC: 10907ZC Drainage of Amniotic Fluid, Therapeutic from Products of Conception, Via Natural or Artificial Opening (ICD-10-PCS; 2018-10-06)
PROC: 4A1HXCZ Monitoring of Products of Conception, Cardiac Rate, External Approach (ICD-10-PCS; 2018-10-06)
PROC: 10E0XZZ Delivery of Products of Conception, External Approach (ICD-10-PCS; 2018-10-06)
DX: O69.81X0 Labor and delivery complicated by cord around neck, without compression, not applicable or unspecified (principal); Z37.0 Single live birth; Z3A.39 39 weeks gestation of pregnancy; Z67.11 Type A blood, Rh negative; Z91.030 Bee allergy status
CPT/HCPCS: 36415; 85025; 86850; 86900; 86901; 86922; 90707; 90715; A9270-GY

== ENCOUNTER → 2018-12-20 05:42 | Day surgery (SDC) | payer OTHER ==
[~2018-12-20 05:42] MED LIST changes: +Atracurium* 10 MG/ML 10 ML VIAL ONE; -Buffered Lidocaine 0.9% SYRIN* 5 ML/SYR SYRINGE INTRADERM ONE; +Buffered Lidocaine 1% SYRIN* 1 ML/SYRINGE INTRADERM ONE; +Bupivacaine 0.5%* 50 ML VIAL ONE; -Dexamethasone IV* 4 MG/ML 1 ML (4 MG) IV SLOW PU ONE; -Dexamethasone IV* 4 MG/ML 1 ML (4 MG) ONE; +Dexamethasone TAB* 4 MG ONE; +Dexamethasone TAB* 4 MG PO ONE; +DiMENhydriNATE IV* 50 MG/ML VIAL IV PUSH PRN; +Glycopyrrolate IV* 0.2 MG/ML 1 ML VIAL ONE; +Ketorolac INJ* 30 MG/ML 1 ML VIAL ONE; +Lactated Ringers 1000 ML Bag* 1,000 ML IV SCH; +Lidocaine 2% PF * 5 ML VIAL ONE; +Midazolam* 1 MG/ML 5 ML VIAL (5 MG) ONE; +Morphine 4 MG/ML VIAL (1 ml) 4 MG/ML VIAL IV PRN; +Naloxone* 0.4 MG/ML 1 ML VIAL IV PRN; +Neostigmine Methylsulfate* 1 MG/ML 10 ML VIAL (1 mg/ml) ONE; +Ondansetron ODT TAB* 4 MG ONE; +Ondansetron TAB* 4 MG PO ONE; +PROCHLORPERAZINE INJ 5 MG/ML 2 ML VIAL IV PRN; +PROCHLORPERAZINE INJ 5 MG/ML 2 ML VIAL ONE; +Propofol* 10 MG/ML 20 ML BTL ONE; +Scopolamine 1.5 mg* PATCH ONE; +Scopolamine 1.5 mg* PATCH TRANSDERM ONE; +Scopolamine PATCH Remove* 1 NOTE MISC PATCH OFF ONE; +ceFOXitin 2 GM IVPREMIX* 2 GM/50 ML BAG ONE; +fentaNYL* 50 MCG/ML 2 ML VIAL (100 MCG VIAL) ONE; +oxyCODONE/Acetamin 5/325 MG* TAB PO PRN
[2018-12-20] MEDS: fentaNYL* 50 MCG/ML 2 ML VIAL (100 MCG VIAL) IV PRN ×3 (09:01→09:19)
[2018-12-20 10:49] VITALS: BP 123/79
--- NOTE | 2018-12-21 23:32 | OP ---
DATE OF OPERATION: 12/20/18 - [facility] DATE OF : 85 SURGEON: David Hernandez MD. ANESTHESIA: General anesthetic with endotracheal intubation. PRE-OP DIAGNOSIS: Multiparity, the patient desires permanent surgical sterilization. POST-OP DIAGNOSIS: Multiparity, the patient desires permanent surgical sterilization. OPERATIVE PROCEDURE: Laparoscopic bilateral tubal ligation with Filshie clips. ESTIMATED BLOOD LOSS: None. SPECIMEN SENT TO PATHOLOGY: None. IV FLUIDS: She received 1400 cc of IV crystalloid fluid. URINE OUTPUT: 400 cc of clear urine. FINDINGS: Exam under anesthesia revealed a normal external genitalia, normal perineum, normal urethral meatus, vagina, and cervix. Her uterus sounded to 9 cm in an anteverted position. Laparoscopically, the patient was noted to have a normal uterus, bowel, bladder, normal tubes and ovaries bilaterally and there were no complications during this procedure. DESCRIPTION OF PROCEDURE: The patient was taken to the operating room where she was identified. She was placed on the operating table where a general anesthetic with endotracheal intubation was obtained without difficulty. She was placed in a dorsal lithotomy position, prepped and draped in normal sterile fashion. Attention was then brought on to the patient's perineum, where the bladder was emptied with a Ortez catheter. The Ortez catheter was left in place. A clear side view speculum was inserted into the patient's vagina. The cervix was identified, grasped with a single-tooth tenaculum. The uterus was sounded. It was noted to be in anteverted position. After sounding the uterus , a [place] uterine manipulator was introduced through the cervix and the balloon in the manipulator was insufflated with 4 cc of sterile water. The speculum was then removed from the patient's vagina. Attention was then brought on to the patient's abdomen where a 1 cm infraumbilical skin incision was made with a knife, carried through to the underlying layer of fascia. The fascia was then grasped with Onofre clamps, brought up to the incision, incised between the Onofre clamps, and entry into the peritoneum was confirmed using a Heidy clamp. The Onofre clamps and the fascia were replaced with 0 Polysorb sutures and through this incision, a 10 mm blunt trocar was introduced. The balloon on the trocar was insufflated with 20 cc of air. The patient's abdomen was insufflated with CO2 gas, after which the camera was inserted through the trocar. The patient was placed in a Trendelenburg position and a survey of the patient's pelvic anatomy revealed findings as noted above. A second trocar was introduced 4 cm above the symphysis pubis in the midline under direct visualization. Through this trocar, a Filshie clip applicator was introduced. The fallopian tubes were grasped bilaterally with a Filshie clamp and a Filshie clip was left in place bilaterally with good blanching of the entire tubal circumference at the site of bifurcation. At this point, all the instruments were removed from the patient's abdomen as well as CO2 gas. The fascial incision on the umbilicus was closed using 0 Polysorb suture in a running fashion, and the umbilical and suprapubic incisions were closed with 4-0 Monocryl in a subcuticular stitch. Ortez catheter was removed as well as the uterine manipulator. Sponge, lap, and needle counts were correct x2. She was then transferred to recovery room area in stable condition. [id number]/[facility] #: [id number] CAROL
== END | disposition home or self-care (01) ==
LOC: OR 05:42
PROVIDERS: ATTEND Obstetrics & Gynecology
DX: Z30.2 Encounter for sterilization (principal); F41.9 Anxiety disorder, unspecified
CPT/HCPCS: A9270-GY; J0694; J0780; J1885; J2250; J2704; J2710; J3010; J3490; J8540

== ENCOUNTER 2019-04-24 16:28 | Emergency (ER) | payer OTHER ==
[2019-04-24 16:41] VITALS: BP 114/81
--- NOTE | 2019-04-24 17:19 | UC ---
Ear Complaint HPI - HPI Summary HPI Summary: 33 yo female with left otalgia x 2 weeks no fever or chills itchy now pain into jaw - History of Current Complaint Chief Complaint: UCEar Stated Complaint: LEFT EAR PAIN Time Seen by Provider: 04/24/19 17:07 Hx Obtained From: Patient Hx Last Menstrual Period: 09/23/17 Onset/Duration: Gradual Onset, Lasting Weeks Severity Initially: Mild Severity Currently: Moderate Pain Intensity: 8 Pain Scale Used: 0-10 Numeric Alleviating Factors: OTC Meds Associated Signs/Symptoms: Negative: Discharge, Hearing Loss, Foreign Body Sensation, Trauma to Ear, Swelling @, URI Symptoms - Allergies/Home Medications Allergies/Adverse Reactions: Allergies Allergy/AdvReac Type Severity Reaction Status Date / Time bee venom protein (honey bee) Allergy Hives Verified 12/20/18 06:14 PMH/Surg Hx/FS Hx/Imm Hx Previously Healthy: Yes - Surgical History Surgical History: Yes Surgery Procedure, Year, and Place: 2000 knee surgery [facility] surgery - Family History Known Family History: Positive: Other - daughter gets freq strep, Non- Contributory Negative: Hypertension Family History: NON CONTRIBUTORY - Social History Alcohol Use: Occasionally Alcohol Amount: 1-2 DRINKS/WEEK Substance Use Type: None Smoking Status (MU): Never Smoked Tobacco Have You Smoked in the Last Year: No Household Exposure Type: Cigarettes - Immunization History Most Recent Influenza Vaccination: 05/2018 Most Recent Pneumonia Vaccination: none Review of Systems All Other Systems Reviewed And Are Negative: Yes Constitutional: Positive: Negative Skin: Positive: Negative Eyes: Positive: Negative ENT: Positive: Ear Ache - L Respiratory: Positive: Negative Cardiovascular: Positive: Negative Gastrointestinal: Positive: Negative Genitourinary: Positive: Negative Motor: Positive: Negative Neurovascular: Positive: Negative Musculoskeletal: Positive: Negative Neurological: Positive: Negative Psychological: Positive: Negative Physical Exam Triage Information Reviewed: Yes Appearance: Well-Appearing, No Pain Distress, Well-Nourished Vital Signs: Initial Vital Signs Temp 98.1 F 04/24/19 16:37 Pulse 78 04/24/19 16:37 Resp 18 04/24/19 16:37 BP 114/81 04/24/19 16:37 Pulse Ox 97 04/24/19 16:37 Eyes: Positive: Conjunctiva Clear ENT: Positive: TMs normal, Uvula midline, Other - left tragal tenderness and swelling of left EAC. Negative: Pharyngeal erythema, Nasal congestion, Tonsillar swelling, Tonsillar exudate, Sinus tenderness Neck: Positive: Supple, Nontender, No Lymphadenopathy Respiratory: Positive: Lungs clear, Normal breath sounds, No respiratory distress, No accessory muscle use Cardiovascular: Positive: RRR, No Murmur Ear Complaint Course/Dx - Differential Dx/Diagnosis Provider Diagnosis: Left otitis externa Discharge ED - Sign-Out/Discharge Documenting (check all that apply): Patient Departure All imaging exams completed and their final reports reviewed: No Studies - Discharge Plan Condition: Stable Disposition: HOME Prescriptions: Neomyc/Polym/HC 1% OTIC SUSP* [Cortisporin Otic Susp 1%*] 4 drop LEFT EAR QID 7 Days #1 btl Patient Education Materials: Otitis Externa (ED) Referrals: [facility] [Outside] - If Needed No Primary Care Phys,NOPCP [Primary Care Provider] - Additional Instructions: recheck in 4-5 days if not better advil or aleve for pain - Billing Disposition and Condition Condition: STABLE Disposition: Home
== END 2019-04-24 17:15 | disposition home or self-care (01) ==
LOC: UCEAST 16:28
DX: H60.92 Unspecified otitis externa, left ear (principal)
CPT/HCPCS: 99212; G0463

== ENCOUNTER 2019-05-10 08:52 | Emergency (ER) | payer OTHER ==
[2019-05-10 09:27] VITALS: BP 120/80
--- NOTE | 2019-05-10 10:23 | UC ---
Throat Pain/Nasal Jayden HPI - HPI Summary HPI Summary: 33-year-old female who has had a left earache for about a month. She states that she was treated with some eardrops however the ear pain has not improved and today she has a sore throat. - History of Current Complaint Chief Complaint: UCRespiratory Stated Complaint: SORE THROAT EAR PAIN Time Seen by Provider: 05/10/19 10:01 Hx Obtained From: Patient Hx Last Menstrual Period: 04/01/19 ?: No Onset/Duration: Gradual Onset Severity: Moderate Pain Intensity: 7 Cough: None Associated Signs & Symptoms: Positive: Nasal Discharge - Allergies/Home Medications Allergies/Adverse Reactions: Allergies Allergy/AdvReac Type Severity Reaction Status Date / Time bee venom protein (honey bee) Allergy Hives Verified 05/10/19 09:27 Home Medications: Home Medications NK [No Home Medications Reported] 05/10/19 [History Confirmed 05/10/19] PMH/Surg Hx/FS Hx/Imm Hx Previously Healthy: Yes - Surgical History Surgical History: Yes Surgery Procedure, Year, and Place: [facility] L knee surgery [place] thumb surgery. tubal ligation - Family History Known Family History: Positive: Other - daughter gets freq strep, Non- Contributory Negative: Hypertension Family History: NON CONTRIBUTORY - Social History Lives: With Family Alcohol Use: Occasionally Alcohol Amount: 1-2 DRINKS/WEEK Substance Use Type: None Smoking Status (MU): Never Smoked Tobacco Have You Smoked in the Last Year: No Household Exposure Type: Cigarettes - Immunization History Most Recent Influenza Vaccination: 05/2018 Most Recent Pneumonia Vaccination: none Review of Systems All Other Systems Reviewed And Are Negative: Yes ENT: Positive: Sore Throat - Sore throat the past day patient states she has seen white spots on her throat., Ear Ache - Left ear ache for about one month. Is Patient Immunocompromised?: No Physical Exam Triage Information Reviewed: Yes Appearance: Well-Appearing, No Pain Distress, Well-Nourished Vital Signs: Initial Vital Signs Temp 97.3 F 05/10/19 09:23 Pulse 79 05/10/19 09:23 Resp 18 05/10/19 09:23 BP 120/80 05/10/19 09:23 Pulse Ox 100 05/10/19 09:23 Vital Signs Reviewed: Yes Eyes: Positive: Conjunctiva Clear ENT: Positive: Hearing grossly normal, Pharyngeal erythema, TMs normal, Tonsillar swelling, Tonsillar exudate, Uvula midline. Negative: Trismus, Muffled voice, Hoarse voice Neck: Positive: Supple, Nontender, Enlarged Nodes @ - Left tonsillar lymph node enlargement. Respiratory: Positive: Lungs clear, Normal breath sounds, No respiratory distress, No accessory muscle use Cardiovascular: Positive: RRR, No Murmur, Pulses Normal, Brisk Capillary Refill Musculoskeletal: Positive: Strength Intact, ROM Intact Neurological: Positive: Alert, Muscle Tone Normal Psychological Exam: Normal Skin Exam: Normal Throat Pain/Nasal Course/Dx - Course Course Of Treatment: Rapid strep: Negative - Differential Dx/Diagnosis Provider Diagnosis: Pharyngitis Discharge ED - Sign-Out/Discharge Documenting (check all that apply): Patient Departure All imaging exams completed and their final reports reviewed: No Studies - Discharge Plan Condition: Good Disposition: HOME Patient Education Materials: Pharyngitis (ED) Referrals: No Primary Care Phys,NOPCP [Primary Care Provider] - [facility] [Outside] Additional Instructions: Warm saltwater gargles, may take Tylenol every 4 hours and alternate with Motrin every 8 hours for pain or fever. Follow-up with your primary care provider as needed if no improvement in 3 or 4 days. - Billing Disposition and Condition Condition: GOOD Disposition: Home
== END 2019-05-10 11:12 | disposition home or self-care (01) ==
LOC: UCEAST 08:52
DX: H92.02 Otalgia, left ear (principal); J02.9 Acute pharyngitis, unspecified
CPT/HCPCS: 87651; 99211; G0463

== ENCOUNTER 2019-08-28 14:17 | Emergency (ER) | payer OTHER ==
[2019-08-28 14:54] VITALS: BP 108/66
--- NOTE | 2019-08-28 14:55 | UC ---
Ear Complaint HPI - HPI Summary HPI Summary: 34 year old female with no PMH presents with L ear pain. Patient states she has had multiple episodes over the past several months, treated with ear drops here and conservative treatment without benefit. NO throat pain, L jaw pain, no SOB, chest pain. No R sided ear pain. Has tried antihistamines without relief. - History of Current Complaint Stated Complaint: L EAR PAIN Time Seen by Provider: 08/28/19 14:53 Hx Obtained From: Patient Hx Last Menstrual Period: 08/22/18 ?: No Onset/Duration: Gradual Onset, Lasting Weeks Severity Initially: Moderate Severity Currently: Moderate Pain Intensity: 4 Pain Scale Used: 0-10 Numeric Associated Signs/Symptoms: Negative: Discharge, Hearing Loss, Foreign Body Sensation, Trauma to Ear - Allergies/Home Medications Allergies/Adverse Reactions: Allergies Allergy/AdvReac Type Severity Reaction Status Date / Time bee venom protein (honey bee) Allergy Hives Verified 08/28/19 14:48 Home Medications: Home Medications Ibuprofen TAB* [Advil TAB*] 800 mg PO ONCE 08/28/19 [History Confirmed 08/28/19] PMH/Surg Hx/FS Hx/Imm Hx Previously Healthy: Yes - Surgical History Surgical History: Yes Surgery Procedure, Year, and Place: 2000 L knee surgery. R thumb surgery. tubal ligation - Family History Known Family History: Positive: Other - daughter gets freq strep, Non- Contributory Negative: Hypertension Family History: NON CONTRIBUTORY - Social History Alcohol Use: Occasionally Alcohol Amount: 1-2 DRINKS/WEEK Substance Use Type: None Smoking Status (MU): Never Smoked Tobacco Have You Smoked in the Last Year: No Household Exposure Type: Cigarettes - Immunization History Most Recent Influenza Vaccination: 05/2018 Most Recent Pneumonia Vaccination: none Review of Systems All Other Systems Reviewed And Are Negative: Yes Constitutional: Negative: Fever, Chills, Fatigue ENT: Positive: Ear Ache, Sinus Pain/Tenderness Respiratory: Positive: Negative Is Patient Immunocompromised?: No Physical Exam Triage Information Reviewed: Yes Appearance: Well-Appearing, No Pain Distress, Well-Nourished Vital Signs: Initial Vital Signs Temp 98.2 F 08/28/19 14:49 Pulse 79 08/28/19 14:49 Resp 14 08/28/19 14:49 BP 108/66 08/28/19 14:49 Pulse Ox 97 08/28/19 14:49 Vital Signs Reviewed: Yes Eyes: Positive: Conjunctiva Clear ENT: Positive: Pharynx normal, TMs normal - right, TM dull - left TM with scarring at base of TM from 4-7 oclock position, cystic in appearance., Sinus tenderness. Negative: Pharyngeal erythema, Tonsillar swelling, Tonsillar exudate, Uvula midline Neck: Positive: Supple, Nontender, No Lymphadenopathy. Negative: Nuchal Rigidity, Enlarged Nodes @ Neurological Exam: Normal Psychological Exam: Normal Ear Complaint Course/Dx - Course Course Of Treatment: TM scarring - FOllow up with ENT due to chronic ear pain - Azithromycin to help with possible infection - Tylenol/ motrin as needed for pain - Differential Dx/Diagnosis Differential Diagnosis/HQI/PQRI: Perforated TM, URI Provider Diagnosis: Tympanic membrane irritation Discharge ED - Sign-Out/Discharge Documenting (check all that apply): Patient Departure All imaging exams completed and their final reports reviewed: No Studies - Discharge Plan Condition: Good Disposition: HOME Prescriptions: Azithromyxin MERCED (NF) [Z-Merced (Zithromax) 250 mg tabs #6] 2 tab PO .TODAY, THEN 1 DAILY #6 tab Patient Education Materials: Ear Infection (ED) Referrals: Tal Ashby MD [Medical Doctor] - 2 Weeks (ENT referral for L ear pain ) No Primary Care Phys,NOPCP [Primary Care Provider] - Additional Instructions: - FOllow up with ENT due to chronic ear pain - Azithromycin to help with possible infection - Tylenol/ motrin as needed for pain - Billing Disposition and Condition Condition: GOOD Disposition: Home
== END 2019-08-28 15:49 | disposition home or self-care (01) ==
LOC: UCCORT 14:17
DX: H73.892 Other specified disorders of tympanic membrane, left ear (principal); Z91.030 Bee allergy status
CPT/HCPCS: 99212; G0463